=== PATIENT | female | born 1970 | race African-American/Black ===

== ENCOUNTER → 2016-08-28 | Emergency (ER) | payer SELFPAY ==
[2016-08-28 23:38] VITALS: BMI 23.0
--- NOTE | 2016-08-28 23:46 | PDOC ---
History of Present Illness - General Chief Complaint: Pain Stated Complaint: INJURY Time Seen by Provider: 08/28/16 23:34 History Source: Patient - History of Present Illness Initial Comments: 08/29/16 00:27 45-year-old female who is right hand dominant presents to the emergency department complaining of pain to the right shoulder and right thumb. 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 She states the resident pulled her right thumb causing her to twist her right shoulder and her right thumb. Pain is described as 4/10 dull nonradiating intermittent discomfort. Patient states the pain is exacerbated on movement and touch and alleviated at rest. Patient denies any extremity numbness or tingling sensation. Patient denies any head, neck or back injuries. Past History - Past Medical History Allergies/Adverse Reactions: Allergies Allergy/AdvReac Type Severity Reaction Status Date / Time No Known Allergies Allergy Verified 08/28/16 23:30 Home Medications: Ambulatory Orders No Home Medications 0 dose .ROUTE UTDICT 01/18/12 Anemia: No Asthma: No Cancer: No HTN: Yes - Surgical History Abdominal Surgery: No Appendectomy: No Cardiac Surgery: No - Psycho/Social/Smoking Cessation Hx Anxiety: No Suicidal Ideation: No Smoking Status: No Smoking History: Never smoked Number of Cigarettes Smoked Daily: 0 Hx Alcohol Use: No Drug/Substance Use Hx: No Substance Use Type: None Review of Systems - Review of Systems Able to Perform ROS?: Yes Comments:: 08/29/16 00:28 CONSTITUTIONAL: Absent: fever, chills, diaphoresis, generalized weakness, malaise, loss of appetite HEENT: Absent: rhinorrhea, nasal congestion, throat pain, throat swelling, difficulty swallowing, mouth swelling, ear pain, eye pain, visual Changes CARDIOVASCULAR: Absent: chest pain, loss of consciousness, palpitations, irregular heart rate, peripheral edema RESPIRATORY: Absent: cough, shortness of breath, dyspnea with exertion, orthopnea, wheezing, stridor, hemoptysis GASTROINTESTINAL: Absent: abdominal pain, abdominal distension, nausea, vomiting, diarrhea, constipation, melena, hematochezia GENITOURINARY: Absent: dysuria, frequency, urgency, hesitancy, hematuria, flank pain, genital pain MUSCULOSKELETAL: Right thumb pain/ right shoulder pain on movement Absent: myalgia, arthralgia, joint swelling SKIN: Absent: rash, itching, pallor HEMATOLOGIC/IMMUNOLOGIC: Absent: easy bleeding, easy bruising, lymphadenopathy, frequent infections ENDOCRINE: Absent: unexplained weight gain, unexplained weight loss, heat intolerance, cold intolerance NEUROLOGIC: Absent: headache, focal weakness or paresthesias, dizziness, unsteady gait, seizure, mental status changes, bladder or bowel incontinence PSYCHIATRIC: Absent: anxiety, depression, suicidal or homicidal ideation, hallucinations. Is the patient limited Tajik proficient: No *Physical Exam - Vital Signs Last Vital Signs Temp Pulse Resp BP Pulse Ox 98.0 F 71 18 141/86 100 08/28/16 23:30 08/28/16 23:30 08/28/16 23:30 08/28/16 23:30 08/28/16 23:30 - Physical Exam Comments: 08/29/16 00:29 GENERAL: Well developed, well nourished. Awake and alert. No acute distress. HEENT: Normocephalic, atraumatic. PERRLA, EOMI. No conjunctival pallor. Sclera are non- icteric. Moist mucous membranes. Oropharynx is clear. NECK: Supple. Full ROM. No JVD. Carotid pulses 2+ and symmetric, without bruits. No thyromegaly. No lymphadenopathy. CARDIOVASCULAR: Regular rate and rhythm. No murmurs, rubs, or gallops. Distal pulses are 2+ and symmetric. PULMONARY: No evidence of respiratory distress. Lungs clear to auscultation bilaterally. No wheezing, rales or rhonchi. ABDOMINAL: Soft. Non-tender. Non-distended. No rebound or guarding. No organomegaly. Normoactive bowel sounds. MUSCULOSKELETAL (excluding right shoulder and right thumb/see below Normal range of motion at all joints. No bony deformities or tenderness. No CVA tenderness. EXTREMITIES: No cyanosis. No clubbing. No edema. No calf tenderness. SKIN: Warm and dry. Normal capillary refill. No rashes. No jaundice. NEUROLOGICAL: Alert, awake, appropriate. Cranial nerves 2-12 intact. No deficits to light touch and temperature in face, upper extremities and lower extremities. No motor deficits in the in face, upper extremities and lower extremities. Normoreflexic in the upper and lower extremities. Normal speech. Toes are down- going bilaterally. Gait is normal without ataxia. PSYCHIATRIC: Cooperative. Good eye contact. Appropriate mood and affect. Right thumb: Decreased R.O.M. Pain on palp to base of thumb Cap refill <2sec neg obv deformities 2 point sensation intact right wrist F.R.O.M. neg deformities neg pain on palp 2+radial pulse Right elbow F.R.O.M. neg pain neg obv deformities Right shoulder F.R.O.M. neg pain on palp neg obv deformities ED Treatment Course - RADIOLOGY Radiograph Interpretation: 08/29/16 00:31 XR: right shoulder: neg fx/dislocations Right hand: neg fx/dislocations *DC/Admit/Observation/Transfer Diagnosis at time of Disposition: Sprain of right thumb Qualifiers: Encounter type: initial encounter Sprain of finger site: unspecified site Qualified Code(s): S63.601A - Unspecified sprain of right thumb, initial encounter Right shoulder strain Qualifiers: Encounter type: initial encounter Qualified Code(s): S46.911A - Strain of unspecified muscle, fascia and tendon at shoulder and upper arm level, right arm , initial encounter - Discharge Dispostion Admit: No - Referrals Referrals: Nathen Velasquez MD [Staff Physician] - - Patient Instructions Printed Discharge Instructions: DI for Ulnar Collateral Ligament Sprain of Thumb Additional Instructions: Rest Ice: 20 mins on alternating with 20 mins off for 48 hours while awake Tylenol alternating with motrin as needed for pain Follow up with the orthopedics Return to the ER for severe/persistent/worsening symptoms - Post Discharge Activity Work/School Note: Back to Work
--- NOTE | 2016-08-29 00:17 | PDOC ---
*Physical Exam - Vital Signs Last Vital Signs Temp Pulse Resp BP Pulse Ox 98.0 F 71 18 141/86 100 08/28/16 23:30 08/28/16 23:30 08/28/16 23:30 08/28/16 23:30 08/28/16 23:30 Medical Decision Making - Medical Decision Making 08/29/16 00:17 agree with care from GALE Perez *DC/Admit/Observation/Transfer Diagnosis at time of Disposition: Sprain of right thumb, Right shoulder strain - Referrals Referrals: Nathen Velasquez MD [Staff Physician] - - Patient Instructions Printed Discharge Instructions: DI for Ulnar Collateral Ligament Sprain of Thumb Additional Instructions: Rest Ice: 20 mins on alternating with 20 mins off for 48 hours while awake Tylenol alternating with motrin as needed for pain Follow up with the orthopedics Return to the ER for severe/persistent/worsening symptoms - Post Discharge Activity Work/School Note: Back to Work
[2016-08-29 01:05] VITALS: BP 132/75; PULSE 70; TEMP 98.2
== END | disposition home or self-care (01) ==
LOC: JER 23:22
DX: S46.911A Strain of unspecified muscle, fascia and tendon at shoulder and upper arm level, right arm, initial encounter (principal); S63.601A Unspecified sprain of right thumb, initial encounter; X50.9XXA Other and unspecified overexertion or strenuous movements or postures, initial encounter; X50.0XXA Overexertion from strenuous movement or load, initial encounter; Y93.F9 Activity, other caregiving; Y92.230 Patient room in hospital as the place of occurrence of the external cause; Y99.0 Civilian activity done for income or pay
CPT/HCPCS: 73030-TC-RT; 73130-TC-RT; 84703; 99282-25

== ENCOUNTER 2016-12-11 14:35 | Emergency (ER) | payer OTHER ==
[2016-12-11 14:52] VITALS: TEMP 98.4; BMI 23.8
[2016-12-11] MEDS ORDERED: SODIUM CHLORIDE 1,000 ML IV STA (15:14)
[2016-12-11] MEDS ORDERED: PROMETHAZINE HCL 25 MG/1 ML VIAL IVPUSH ONE (15:15)
--- NOTE | 2016-12-11 15:26 | PDOC ---
Attending Attestation - Resident Resident Name: ZuhairTylor - ED Attending Attestation I have performed the following: I have examined & evaluated the patient, The case was reviewed & discussed with the resident, I agree w/resident's findings & plan, Exceptions are as noted - HPI HPI: 12/11/16 15:25 46y F hx of htn (Remote, currently not being treated) presents with dizziness/ vomiting. The pt was doing well yesterday, woke up and felt very dizzy when she stood up, with a sensation of feelign like the room was spinning around. She had 2 episoes of vomiting. Pt denies any headache, vision changes, dysarthria, neck pain, back pain, trauma, chest pain, palpitions. On exam mild extinghisuing nystagmus noted when looking to the right, othewrise normal finger to nose, rapid alternating movements and normal neuro exam, cardiac exam reveals a normal, regular rhythm, lungs were clear, LE showed no edema/calf tenderness exam otherwise as documented by resident. suspect peripheral vertigo will give antiemetic, meclizine will ck labs to r/o anemia, metabolic dernagement Will reassess 12/11/16 16:25 pt feeling improved ambulating around without difficulty labs reviewed pt will be dc with meclizine with pmd fu retur nprecutions were discussed - Physicial Exam PE: 12/13/16 16:15 see above - Medical Decision Making 12/13/16 16:15 see above Heart Score/ECG Review - ECG Impressions Comment:: 12/11/16 15:26 Twelve-lead EKG was performed and reviewed by me. There is normal sinus rhythm with a normal rate. rate of 64 The axis is normal. The intervals are normal. There is normal R wave progression There are no ST or T wave abnormalities. Impression: Normal twelve-lead EKG
--- NOTE | 2016-12-11 15:42 | PDOC ---
History of Present Illness - General Chief Complaint: Nausea/Vomiting Stated Complaint: NAUSEA,VOMITING Time Seen by Provider: 12/11/16 14:49 - History of Present Illness Initial Comments: 12/11/16 15:37 46F w/ remote hx of HTN presenting with one day of nausea and emesis. Pt reports that she woke up today with nausea, had 2 episodes of NBNB emesis, 2 episodes of watery diarrhea, vertigo worsened by sitting up in her bed, instability on her feet and generalized weakness. She denies fevers, chills, headache, SOB, chest pain, tinnitus, and hearing loss. She states that she ate shrimp for lunch yesterday, and did not have any dinner. 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 She also endorses some urinary frequency, urgency, incomplete voiding, but denies dysuria. Her LMP was 2016, and she is sexually active. 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 - Surgical History Abdominal Surgery: No Appendectomy: No Cardiac Surgery: No - Psycho/Social/Smoking Cessation Hx Anxiety: No Suicidal Ideation: No Smoking Status: No Smoking History: Never smoked Have you smoked in the past 12 months: No Number of Cigarettes Smoked Daily: 0 Information on smoking cessation initiated: No Hx Alcohol Use: No Drug/Substance Use Hx: No Substance Use Type: None Review of Systems - Review of Systems Comments:: 12/11/16 15:43 GENERAL: No fever, chills, night sweats, + weakness. HEAD, EYES, EARS, NOSE AND THROAT: No change in vision, ear pain, or sore throat CARDIOVASCULAR: No chest pain or palpitations RESPIRATORY: No cough, wheezing, or hemoptysis. GASTROINTESTINAL: + nausea, + vomiting, + diarrhea, no constipation, or blood in the stool. GENITOURINARY: No dysuria, + frequency, + urgency MUSCULOSKELETAL: No joint or muscle swelling or pain. SKIN: No rashes or pruritis ENDOCRINE: No increased thirst. No abnormal weight change NEUROLOGIC: No headache, + dizziness, no loss of consciousness, or change in strength/sensation. *Physical Exam - Vital Signs Last Vital Signs Temp Pulse Resp BP Pulse Ox 98.4 F 79 20 170/99 99 12/11/16 14:46 12/11/16 14:46 12/11/16 14:46 12/11/16 14:46 12/11/16 14:46 - Physical Exam Comments: 12/11/16 15:45 GENERAL: Awake, alert, and fully oriented, in no acute distress HEAD: normocephalic, atraumatic HEENT: PERRLA, EOMI NECK: Normal ROM, supple, no lymphadenopathy, JVD, or masses HEART: Regular rate and rhythm, normal S1 and S2, no murmurs, rubs or gallops, peripheral pulses normal and equal bilaterally. LUNGS: CTAB, no wheezing, no rales ABDOMEN: Soft, nontender, nondistended, normoactive bowel sounds. No guarding, no rebound. No masses EXTREMITIES: Normal range of motion, no edema. SKIN: Warm, dry, no rashes or lesions noted. NEUROLOGICAL: Cranial nerves II through XII grossly intact. Normal speech, no focal sensorimotor deficits, normal [id number] test ED Treatment Course - LABORATORY CBC & Chemistry Diagram: 12/11/16 15:45 12/11/16 15:45 Medical Decision Making - Medical Decision Making 12/11/16 15:46 46F w/ remote hx of HTN presenting with acute nausea, emesis, diarrhea, vertigo , and urinary symptoms suggesting viral gastroenteritis vs. UTI vs. BPPV. CBC: wnl CMP: wnl UA: negative Urine preg test: negative lipase: negative Given 1L of fluids, meclizine, and zofran. Pt's nausea responded to the medications. She is feeling well afterwards, has no more vertiginous symptoms, and has been able to walk to the bathroom without problem. Pt was instructed about likely having peripheral vertigo, its causes, and the treatment. She was informed to follow up with her PCP within a week. *DC/Admit/Observation/Transfer Diagnosis at time of Disposition: Peripheral vertigo Qualifiers: Laterality: unspecified laterality Qualified Code(s): H81.399 - Other peripheral vertigo, unspecified ear - Discharge Dispostion Disposition: HOME Condition at time of disposition: Improved Admit: No - Patient Instructions Printed Discharge Instructions: DI for Antibiotic -- associated Colitis -- C difficile, DI for Nausea -- Adult, DI for Benign Paroxysmal Positional Vertigo Additional Instructions: Your lab tests have all come back negative. Your symptoms are likely due to peripheral vertigo. Please follow up with PCP Dr. Griffith within a week. If you develop any concerning symptoms such as shortness of breath, chest pain, severe headache, any neurologic deficit, then return to the ED. - Attestations Physician Attestion: 12/11/16 18:41
[2016-12-11] MEDS ORDERED: PROMETHAZINE HCL 25 MG/1 ML VIAL ONE (15:53)
[2016-12-11] MEDS ORDERED: MECLIZINE HCL 25 MG TABLET (FP) PO ONE (16:07)
[2016-12-11] MEDS ORDERED: ONDANSETRON 4 MG/2 ML VIAL IVPUSH ONE (16:18)
[2016-12-11] MEDS ORDERED: ONDANSETRON 4 MG/2 ML VIAL ONE (16:24)
[2016-12-11 16:32] LABS: BASOPHIL 0.9 % (0-2.0); EOSINOPHIL 0.1 % (0-4.5); MCH 27.5 pg (25.7-33.7); MCHC 32.4 g/dl (32.0-36.0); MEAN CELL VOLUME 84.9 fl (80-96); MEAN PLT VOLUME 8.6 fl (7.5-11.1); NEUTROPHILS 62.1 % (42.8-82.8); PLATELET COUNT 286 K/MM3 (134-434); RDW 13.5 % (11.6-15.6); WHITE BLOOD COUNT 3.5 K/mm3 (4.0-10.0)
[2016-12-11] MEDS ORDERED: MECLIZINE HCL 25 MG TABLET (FP) ONE (16:47)
[2016-12-11 16:54] LABS: ALBUMIN 4.3 g/dl (3.4-5.0); ANION GAP 8 (8-16); BILIRUBIN,TOTAL 0.6 mg/dL (0.2-1.0); CALCIUM 9.5 mg/dL (8.5-10.1); CO2 25 mmol/L (21-32); CREATININE 0.5 mg/dL (0.55-1.02); GLUCOSE,RANDOM 100 mg/dL (74-106); SGOT/AST 7 U/L (15-37); SGPT/ALT 16 U/L (12-78); TOT PROT 7.6 g/dl (6.4-8.2)
[2016-12-11 16:55] LABS: ALK PHOS 87 U/L (45-117)
[2016-12-11 17:34] LABS: URINE APPEARANCE CLEAR; URINE BILIRUBIN NEGATIVE (NEGATIVE); URINE BLOOD NEGATIVE (NEGATIVE); URINE COLOR COLORLESS; URINE GLUCOSE (UA) NEGATIVE (NEGATIVE); URINE KETONE NEGATIVE (NEGATIVE); URINE LEUK ESTERASE NEGATIVE (NEGATIVE); URINE NITRITE NEGATIVE (NEGATIVE); URINE PROTEIN NEGATIVE (NEGATIVE); URINE UROBILINOGEN NEGATIVE mg/dL (0.2-1.0)
[2016-12-11 19:08] VITALS: BP 114/68; PULSE 60
--- NOTE | 2016-12-12 16:18 | EKG ---
Test Reason : Blood Pressure : / mmHG Vent. Rate : 064 BPM Atrial Rate : 064 BPM P-R Int : 132 ms QRS Dur : 088 ms QT Int : 414 ms P-R-T Axes : 031 023 001 degrees QTc Int : 427 ms NORMAL SINUS RHYTHM NORMAL ECG NO PREVIOUS ECGS AVAILABLE Confirmed by DEL HENSLEY MD ([id number]) on 12/12/2016 4:18:26 PM Referred By: Confirmed By:DEL HENSLEY MD
== END 2016-12-11 19:00 | disposition home or self-care (01) ==
LOC: JER 14:35
PROC: 3E0337Z Introduction of Electrolytic and Water Balance Substance into Peripheral Vein, Percutaneous Approach (ICD-10-PCS; principal; 2016-12-11)
PROC: 3E033GC Introduction of Other Therapeutic Substance into Peripheral Vein, Percutaneous Approach (ICD-10-PCS; 2016-12-11)
DX: H81.399 Other peripheral vertigo, unspecified ear (principal)
CPT/HCPCS: 36415; 80053; 81003; 83690; 84703; 85025; 93005; 93010; 99283-25

== ENCOUNTER 2017-10-05 12:15 | Emergency (ER) | payer OTHER ==
[2017-10-05 12:23] VITALS: BMI 27.1
--- NOTE | 2017-10-05 12:37 | PDOC ---
History of Present Illness - General Chief Complaint: Lightheaded Stated Complaint: DIZZINESS Time Seen by Provider: 10/05/17 12:36 - History of Present Illness Initial Comments: 10/05/17 12:36 Ms. Marks is a 46 yo female w/ pmh of HTN, HLD, and vertigo who presents for evaluation of 1 day history of Nausea and vomiting she likens to her vertigo symptoms. She has previously been diagnosed in the ER and proscribed Neurology follow-up however was not able to make the appointment. Does not have any meclizine at home. Denies any pain however currently has positional dizziness. The patient denies chest pain, shortness of breath, and headache. Denies fever, chills, nausea, vomit, diarrhea and constipation. Denies dysuria, frequency, urgency and hematuria. Allergies: NKDA Past History - Past Medical History Allergies/Adverse Reactions: Allergies Allergy/AdvReac Type Severity Reaction Status Date / Time No Known Allergies Allergy Verified 10/05/17 12:22 Home Medications: Ambulatory Orders No Home Medications 0 dose .ROUTE UTDICT 01/18/12 Meclizine HCl [Antivert -] 25 mg PO DAILY PRN #7 tablet 10/05/17 Anemia: No Asthma: No Cancer: No COPD: No HTN: Yes (NO meds) - Surgical History Abdominal Surgery: No Appendectomy: No Cardiac Surgery: No - Suicide/Smoking/Psychosocial Hx Smoking Status: No Smoking History: Never smoked Have you smoked in the past 12 months: No Number of Cigarettes Smoked Daily: 0 Hx Alcohol Use: No Drug/Substance Use Hx: No Substance Use Type: None Review of Systems - Review of Systems Comments:: 10/05/17 12:36 GENERAL/CONSTITUTIONAL: No fever or chills. No weakness. HEAD, EYES, EARS, NOSE AND THROAT: No change in vision. No ear pain or discharge. No sore throat. CARDIOVASCULAR: No chest pain or shortness of breath RESPIRATORY: No cough, wheezing, or hemoptysis. GASTROINTESTINAL: +Nausea/vomiting x1 day consisting of food she has eaten. Single episode of diarrhea this morning. No constipation. GENITOURINARY: No dysuria, frequency, or change in urination. MUSCULOSKELETAL: No joint or muscle swelling or pain. No neck or back pain. SKIN: No rash NEUROLOGIC: +Positional vertigo increased by sitting up. No headache, loss of consciousness, or change in strength/sensation. ENDOCRINE: No increased thirst. No abnormal weight change HEMATOLOGIC/LYMPHATIC: No anemia, easy bleeding, or history of blood clots. ALLERGIC/IMMUNOLOGIC: No hives or skin allergy. *Physical Exam - Vital Signs Last Vital Signs Temp Pulse Resp BP Pulse Ox 97.5 F L 74 18 163/93 99 10/05/17 12:19 10/05/17 12:19 10/05/17 12:19 10/05/17 12:19 10/05/17 12:19 - Physical Exam Comments: 10/05/17 12:36 GENERAL: Awake, alert, and fully oriented, in no acute distress HEAD: No signs of trauma, normocephalic, atraumatic EYES: +Mild horizontal nystagmus on exam. PERRLA, EOMI, sclera anicteric, conjunctiva clear ENT: Auricles normal inspection, hearing grossly normal, nares patent, oropharynx clear without exudates. Moist mucosa NECK: Normal ROM, supple, no lymphadenopathy, JVD, or masses LUNGS: No distress, speaks full sentences, clear to auscultation bilaterally HEART: Regular rate and rhythm, normal S1 and S2, no murmurs, rubs or gallops, peripheral pulses normal and equal bilaterally. ABDOMEN: Soft, nontender, normoactive bowel sounds. No guarding, no rebound. No masses EXTREMITIES: Normal inspection, Normal range of motion, no edema. No clubbing or cyanosis. NEUROLOGICAL: Cranial nerves II through XII grossly intact. Normal speech, normal gait, no focal sensorimotor deficits SKIN: Warm, Dry, normal turgor, no rashes or lesions noted. ED Treatment Course - LABORATORY CBC & Chemistry Diagram: 10/05/17 13:00 10/05/17 13:00 Medical Decision Making - Medical Decision Making 10/05/17 15:43 Ms. Marks is a 46 yo female w/ pmh as described who presents for evaluation of dizziness consistent w/ her previous vertigo episode. Meclizine and fluids given for symptomatic relief. Labs grossly wnl. Patient given additional liter and reglan for further relief from symptoms. 10/05/17 16:23 Patient reporting significant relief from symptoms with above treatment. Discharging to home with ENT and Neurology f/u. *DC/Admit/Observation/Transfer Diagnosis at time of Disposition: Peripheral vertigo Qualifiers: Laterality: unspecified laterality Qualified Code(s): H81.399 - Other peripheral vertigo, unspecified ear - Discharge Dispostion Disposition: HOME - Prescriptions Prescriptions: Meclizine HCl [Antivert -] 25 mg PO DAILY PRN #7 tablet PRN Reason: Vertigo - Referrals Referrals: Mckayla Palacios MD [Primary Care Provider] - Seth Dill DO [Staff Physician] - Carlton Albert MD [Staff Physician] - - Patient Instructions Printed Discharge Instructions: DI for Vertigo Additional Instructions: Please follow-up with ENT and Neurology as discussed. Return to ER if any further dizziness, headache, fever, chills, or other concerning symptoms. Take meclizine as needed for vertigo symptoms. - Post Discharge Activity
[2017-10-05] MEDS ORDERED: SODIUM CHLORIDE 1,000 ML IV STA (12:45)
[2017-10-05] MEDS ORDERED: MECLIZINE HCL 25 MG TABLET (FP) PO ONE (12:45)
[2017-10-05] MEDS ORDERED: ONDANSETRON 4 MG/2 ML VIAL IVPUSH ONE (12:45)
[2017-10-05] MEDS ORDERED: MECLIZINE HCL 25 MG TABLET (FP) ONE (12:55)
[2017-10-05] MEDS ORDERED: ONDANSETRON 4 MG/2 ML VIAL ONE (12:55)
--- NOTE | 2017-10-05 12:59 | PDOC ---
Attending Attestation - HPI HPI: 10/05/17 15:16 The patient is a 46 year old female with a significant PMH of hypertension, hyperlipidemia, and vertigo who presents to the emergency department for evaluation of 1 day history of Nausea and vomiting she likens to her vertigo symptoms. The patient was previously diagnosed in the ER and proscribed Neurology follow-up however was not able to make the appointment. The patient reports dizziness and headache at time of exam but denies any pain. She denies any other symptoms. She denies fever, chills, nausea, vomit, diarrhea, constipation or urinary symptoms. She denies chest pain, shortness of breath, headache and dizziness. The patient denies any other complaints. PCP: Dr. Palacios - Physicial Exam PE: 10/05/17 15:16 GENERAL: Awake, alert, and fully oriented, in no acute distress HEAD: No signs of trauma EYES: (+)pupils reactive. PERRLA, EOMI, sclera anicteric, conjunctiva clear ENT: Auricles normal inspection, hearing grossly normal, nares patent, oropharynx clear without exudates. Moist mucosa NECK: Normal ROM, supple, no lymphadenopathy, JVD, or masses LUNGS: Breath sounds equal, clear to auscultation bilaterally. No wheezes, and no crackles HEART: Regular rate and rhythm, normal S1 and S2, no murmurs, rubs or gallops ABDOMEN: Soft, nontender, normoactive bowel sounds. No guarding, no rebound. No masses EXTREMITIES: Normal range of motion, no edema. No clubbing or cyanosis. No cords, erythema, or tenderness NEUROLOGICAL: Cranial nerves II through XII grossly intact. Normal speech, normal gait SKIN: Warm, Dry, normal turgor, no rashes or lesions noted. Documentation prepared by Cruz Judd, acting as medical collector for Corry Romero MD. <Crzu Judd - Last Filed: 10/05/17 15:16> - Resident Resident Name: Mehdi Cardona - ED Attending Attestation I have performed the following: I have examined & evaluated the patient, The case was reviewed & discussed with the resident, I agree w/resident's findings & plan, Exceptions are as noted - Medical Decision Making 10/05/17 12:59 I, Dr. Corry Romero, DO, attest that this document has been prepared under my direction and personally reviewed by me in its entirety. I further attest, that it accurately reflects all work, treatment, procedures and medical decision -making performed by me. 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
[2017-10-05] MEDS ORDERED: METOCLOPRAMIDE HCL INJECTION 10 MG/2 ML VIAL IVPB ONE (13:02)
[2017-10-05 13:14] LABS: BASO % 0.8 % (0-2.0); EOS % 0.2 % (0-4.5); HEMATOCRIT 38.1 % (32.4-45.2); HEMOGLOBIN 12.7 GM/dL (10.7-15.3); LYMPH % 17.6 % (8-40); MCH 28.1 pg (25.7-33.7); MCHC 33.4 g/dl (32.0-36.0); MEAN CELL VOLUME 84.3 fl (80-96); MEAN PLT VOLUME 8.7 fl (7.5-11.1); MONO % 6.9 % (3.8-10.2); NEUT % 74.5 % (42.8-82.8); PLATELET COUNT 231 K/MM3 (134-434); RBC 4.52 M/mm3 (3.60-5.2); RDW 13.1 % (11.6-15.6); WHITE BLOOD COUNT 4.7 K/mm3 (4.0-10.0)
[2017-10-05] MEDS ORDERED: METOCLOPRAMIDE HCL INJECTION 10 MG/2 ML VIAL ONE (13:20)
[2017-10-05 13:38] LABS: ALBUMIN 3.5 g/dl (3.4-5.0); ALK PHOS 75 U/L (45-117); ANION GAP 7 (8-16); BILIRUBIN,TOTAL 0.6 mg/dL (0.2-1.0); BLOOD UREA NITROGEN 5 mg/dL (7-18); CALCIUM 8.5 mg/dL (8.5-10.1); CHLORIDE 106 mmol/L (98-107); CO2 25 mmol/L (21-32); CREATININE 0.6 mg/dL (0.55-1.02); GLUCOSE,RANDOM 118 mg/dL (74-106); POTASSIUM 3.9 mmol/L (3.5-5.1); SGOT/AST 13 U/L (15-37); SGPT/ALT 26 U/L (12-78); SODIUM 138 mmol/L (136-145); TOT PROT 6.6 g/dl (6.4-8.2)
[2017-10-05 14:44] LABS: HCG,QUALITATIVE URINE NEGATIVE
[2017-10-05 14:48] LABS: URINE APPEARANCE CLEAR; URINE BILIRUBIN NEGATIVE (<2.0 mg/dL); URINE COLOR STRAW; URINE GLUCOSE (UA) NEGATIVE (NEGATIVE); URINE KETONE NEGATIVE (NEGATIVE); URINE LEUK ESTERASE NEGATIVE (NEGATIVE); URINE NITRITE NEGATIVE (NEGATIVE); URINE PROTEIN NEGATIVE (NEGATIVE); URINE UROBILINOGEN NEGATIVE mg/dL (0.2-1.0)
[2017-10-05] MEDS ORDERED: SODIUM CHLORIDE 0.9% 1000 ML INFUS.BAG IV ONE (15:17)
[2017-10-05] MEDS ORDERED: KETOROLAC TROMETHAMINE 15 MG/ML VIAL IVPUSH ONE (15:17)
[2017-10-05] MEDS ORDERED: KETOROLAC TROMETHAMINE 15 MG/ML VIAL ONE (15:44)
[2017-10-05 16:54] VITALS: BP 120/78; PULSE 80; TEMP 98.1
--- NOTE | 2017-10-05 19:36 | EKG ---
Test Reason : Blood Pressure : / mmHG Vent. Rate : 066 BPM Atrial Rate : 066 BPM P-R Int : 150 ms QRS Dur : 090 ms QT Int : 444 ms P-R-T Axes : 043 029 005 degrees QTc Int : 465 ms NORMAL SINUS RHYTHM NORMAL ECG WHEN COMPARED WITH ECG OF 11-DEC-2016 14:52, NO SIGNIFICANT CHANGE WAS FOUND Confirmed by SHARDA DELEON MD ([id number]) on 10/05/2017 7:36:26 PM Referred By: Confirmed By:SHARDA DELEON MD
== END 2017-10-05 17:13 | disposition home or self-care (01) ==
LOC: JER 12:15
PROC: 3E033GC Introduction of Other Therapeutic Substance into Peripheral Vein, Percutaneous Approach (ICD-10-PCS; principal; 2017-10-05)
PROC: 3E033GC Introduction of Other Therapeutic Substance into Peripheral Vein, Percutaneous Approach (ICD-10-PCS; 2017-10-05)
PROC: 3E0333Z Introduction of Anti-inflammatory into Peripheral Vein, Percutaneous Approach (ICD-10-PCS; 2017-10-05)
DX: H81.399 Other peripheral vertigo, unspecified ear (principal); I10 Essential (primary) hypertension
CPT/HCPCS: 36415; 80053; 81003; 84703; 85025; 87086; 93005; 93010; 99283-25; J7030